=== PATIENT | female | born 1990 | race Hispanic/Latino ===

== ENCOUNTER 2016-10-19 09:28 | Emergency (ER) | payer MEDICAID ==
[2016-10-19 09:48] VITALS: TEMP 99.3
--- NOTE | 2016-10-19 10:02 | ED PDOC ---
Arrival/HPI - General Chief Complaint: Trauma Time Seen by Provider: 10/19/16 10:01 Past Medical History - Psychiatric Hx Substance Use: No Family/Social History Smoking Status: Never Smoked Hx Alcohol Use: No Hx Substance Use: No Allergies/Home Meds Allergies/Adverse Reactions: Allergies No Known Allergies Allergy (Verified 10/19/16 09:48) Home Medications: Home Meds Medication Instructions Recorded Confirmed No Known Home Med 10/19/16 10/19/16 Physical Exam Vital Signs Temp Pulse Resp BP Pulse Ox 10/19/16 09:46 99.3 F 82 15 119/80 97 Medical Decision Making ED Course and Treatment: 10/19/16 10:02 I was available for consultation during PA evaluation. The chart was reviewed by me, and I agree with disposition. The documented history was done by the physician call or contact centre manager. The documented physical exam was done by the physician call or contact centre manager. The documented procedures were done by the physician call or contact centre manager. Disposition/Present on Arrival - Present on Arrival History of DVT/PE: No History of Uncontrolled Diabetes: No Urinary Catheter: No History of Decub. Ulcer: No History Surgical Site Infection Following: None - Disposition Forms: [email or web address] ([place])
--- NOTE | 2016-10-19 10:18 | ED PDOC ---
Arrival/HPI - General Historian: Patient - General Chief Complaint: Trauma Time Seen by Provider: 10/19/16 10:01 - History of Present Illness Narrative History of Present Illness (Text): 10/19/16 10:16 26 yo female come in accompanied by mother for evaluation of Right ankle and Right hip/pelvis pain developed since yesterday after sustained mechanical fall yesterday. As per mom, slipped and twisted her Right ankle. Pt denies complete fall. Pain is localized over joints, non-radiating and worse with ambulation,. Otherwise, pt denies head injury, LOC, syncope, headache, dizziness, neck pain, CP, abd. pain, back pain, denies obvious deformity, weakness, sensory or vascular deficits to B/L UEs and LEs. Appears comfortable now,not in any apparent distress. (Melba Rowe) Past Medical History - Provider Review Nursing Documentation Reviewed: Yes - Travel History Have you recently traveled outside [place] w/in the past 3 mons?: No - Tetanus Immunization Tetanus Immunization: Unknown - Psychiatric Hx Substance Use: No Family/Social History - Physician Review Nursing Documentation Reviewed: Yes Family/Social History: No Known Family HX Smoking Status: Never Smoked Hx Alcohol Use: No Hx Substance Use: No Allergies/Home Meds Allergies/Adverse Reactions: Allergies No Known Allergies Allergy (Verified 10/19/16 09:48) Review of Systems - Physician Review All systems were reviewed & negative as marked: Yes - Review of Systems Constitutional: Normal Eyes: Normal Musculoskeletal: Arthralgias, Joint Swelling. absent: Back Pain, Neck Pain Skin: Normal. absent: Skin Lesions, Laceration Neurological: Normal. absent: Headache, Dizziness, Focal Weakness Endocrine: Normal Hemo/Lymphatic: Normal Psychiatric: Normal Physical Exam Vital Signs Reviewed: Yes Temperature: Afebrile Blood Pressure: Normal Pulse: Regular Respiratory Rate: Normal Appearance: Positive for: Well-Appearing, Non-Toxic, Comfortable Pain Distress: Mild Mental Status: Positive for: Alert and Oriented X 3 - Systems Exam Head: Present: Atraumatic, Normocephalic. No: Tenderness, Contusion Conjunctiva: Present: Normal Nose (External): Present: Atraumatic Neck: Present: Trachea Midline. No: MIDLINE TENDERNESS, Paraspinal Tenderness Respiratory/Chest: No: Tender to Palpation Back: Present: Normal Inspection. No: Midline Tenderness, Paraspinal Tenderness Upper Extremity: Present: Normal ROM, NORMAL PULSES, Neurovascularly Intact, Capillary Refill < 2s. No: Swelling, Deformity Lower Extremity: Present: NORMAL PULSES, Normal ROM, Tenderness (mild tenderness over Right lateral malleolus and Right hip. No deformity, no skin change/ecchymoses. FAROM of B/L LEs. no neurovascular deficits.), Neurovascularly Intact. No: Deformity Neurological: Present: Speech Normal, Normal Sensory Function, Norm Deep Tendon Reflexes Skin: Present: Warm, Dry, Normal Color Psychiatric: Present: Alert, Oriented x 3 Vital Signs Temp Pulse Resp BP Pulse Ox 10/19/16 09:46 99.3 F 82 15 119/80 97 Medical Decision Making ED Course and Treatment: 10/19/16 10:28 I was available for consultation during PA evaluation. The chart was reviewed by me, and I agree with disposition. The documented history was done by the physician cattle farmer. The documented physical exam was done by the physician cattle farmer. The documented procedures were done by the physician cattle farmer. ( Gato Blakely) 10/19/16 11:30 On re-evaluation, pt is afebrile, hemodynamicaly stable. RLE: exam c/w ankle nd hip sprain. NO deformity. FAROM, no neurovascular deficits. Imaging review and appears normal. AIr cast applied to Right ankle. Pt and mom advised on course of ds. ref. to f/u with Ortho in2 -3 days for re-eval. return to ED if any worsening or new changes. (Melba Rowe) - RAD Interpretation Radiology Orders: 10/19/16 10:15 ANKLE RIGHT 3 VIEWS ROUTINE [RAD] Stat Hip Right [HIP MIN 2V W/ PELVIS RT] [RAD] Stat (-) acute fx of dislocation 10/19/16 10:15 ANKLE RIGHT 3 VIEWS ROUTINE [RAD] Stat Hip Right [HIP MIN 2V W/ PELVIS RT] [RAD] Stat (-) acute fx or dislocation (Melba Rowe) - Medication Orders Current Medication Orders: Discontinued Medications Tramadol HCl (Ultram) 50 mg PO STAT STA Stop: 10/19/16 10:17 Last Admin: 10/19/16 10:33 Dose: 50 mg Disposition/Present on Arrival - Present on Arrival Any Indicators Present on Arrival: No History of DVT/PE: No History of Uncontrolled Diabetes: No Urinary Catheter: No History of Decub. Ulcer: No History Surgical Site Infection Following: None - Disposition Have Diagnosis and Disposition been Completed?: Yes Disposition Time: 11:20 Patient Plan: Discharge - Disposition Diagnosis: Ankle sprain, Hip sprain Disposition: HOME/ ROUTINE Patient Problems: Current Active Problems Problem Status Onset Ankle sprain Acute Hip sprain Acute Condition: STABLE Discharge Instructions (ExitCare): Ankle Sprain (ED), Ankle Stirrup Splint (ED) , Hip Sprain (ED) Additional Instructions: Jt wrap to Right ankle for 1 week Ibuprofen for pain as need Light duty to Right leg RICE-rest, ice, compression, elevation Follow up with Orthopedist in2 -3 days for re-evaluation. return to Ed if any worsening or new changes. Prescriptions: Ibuprofen [Motrin Tab] 400 mg PO Q6 #14 tab Referrals: Corby Zacarias MD [Staff Provider] - Follow up with primary Forms: Crew (Colombian)
--- NOTE | 2016-10-19 11:10 | RAD ---
PROCEDURE: Right Hip and pelvis Radiographs. HISTORY: injury COMPARISON: None. FINDINGS: BONES: Normal. No fracture. JOINTS: Normal. SOFT TISSUES: Normal. OTHER FINDINGS: None. IMPRESSION: Negative study
--- NOTE | 2016-10-19 11:10 | RAD ---
PROCEDURE: Right Ankle Radiographs. HISTORY: injury COMPARISON: None FINDINGS: BONES: Normal. No fracture. JOINTS: Normal. No osteoarthritis. Ankle mortise maintained. Talar dome intact SOFT TISSUES: Normal. OTHER FINDINGS: None. IMPRESSION: Normal right ankle radiographs.
[2016-10-19 11:38] VITALS: BP 117/75; PULSE 79; RESP 18; O2SAT 98
== END 2016-10-19 11:39 | disposition home or self-care (01) ==
LOC: ED 09:28
DX: S93.401A Sprain of unspecified ligament of right ankle, initial encounter (principal); S73.101A Unspecified sprain of right hip, initial encounter; W01.0XXA Fall on same level from slipping, tripping and stumbling without subsequent striking against object, initial encounter; Y93.9 Activity, unspecified; Y92.9 Unspecified place or not applicable